=== PATIENT | female | born 1950 | race American Indian/Alaskan Native ===

== ENCOUNTER 2017-07-31 09:33 | Day surgery (SDC) | payer MEDICARE, OTHER ==
[2017-07-31] MEDS ORDERED: Propofol 10 mg/ml Inj (20 ML) ONE (12:32)
[2017-07-31 14:21] VITALS: RESP 13
[2017-07-31 14:33] VITALS: BP 128/85; PULSE 93; TEMP 97.2; O2SAT 99
== END 2017-07-31 14:25 | disposition home or self-care (01) ==
LOC: C.ENDO 09:33
PROVIDERS: ATTEND Internal Medicine Gastroenterology
DX: D12.0 Benign neoplasm of cecum (principal); D12.3 Benign neoplasm of transverse colon; K64.8 Other hemorrhoids
CPT/HCPCS: 45388; 82948; 88305; J2001; J2704